=== PATIENT | female | born 1955 | race African-American/Black ===

== ENCOUNTER 2018-03-15 22:08 | Inpatient (IN) | payer MEDICARE ==
[~2018-03-15] VITALS: Ht 167.6 cm; Wt 161.0 kg
[2018-03-15] MEDS ORDERED: dilTIAZem HCl 25mg/5ml Inj IVP ONE (23:15)
[2018-03-15] MEDS ORDERED: dilTIAZem HCl 125mg/25ml Inj IVPB ONE (23:25)
[2018-03-15 23:37] LABS: BASOPHILS % (AUTO) 1.2 % (0.0-2.0); EOSINOPHILS % (AUTO) 0.4 % (0.0-3.0); HEMATOCRIT 43.7 % (37.0-47.0); HEMOGLOBIN 13.7 G/DL (12.0-16.0); LYMPHOCYTES % (AUTO) 23.6 % (20.0-45.0); MEAN CORPUSCULAR VOLUME 87 FL (80-99); MONOCYTES % (AUTO) 6.1 % (1.0-10.0); NEUTROPHILS % (AUTO) 68.7 % (45.0-75.0); PLATELET COUNT 198 K/UL (150-450); RED BLOOD COUNT 5.04 M/UL (4.20-5.40); RED CELL DISTRIBUTION WIDTH 14.4 % (11.6-14.8); WHITE BLOOD COUNT 8.8 K/UL (4.8-10.8)
[2018-03-15] MEDS ORDERED: Insulin Human Regular 100units/ml 3ml IV ONE (23:45)
[2018-03-15 23:58] LABS: ALANINE AMINOTRANSFERASE 22 U/L (12-78); ALBUMIN 2.5 G/DL (3.4-5.0); ALBUMIN/GLOBULIN RATIO 0.7 (1.0-2.7); ALKALINE PHOSPHATASE 126 U/L (46-116); ANION GAP 7 mmol/L (5-15); ASPARTATE AMINO TRANSFERASE 13 U/L (15-37); BILIRUBIN,TOTAL 0.7 MG/DL (0.2-1.0); BLOOD UREA NITROGEN 43 mg/dL (7-18); CALCIUM 8.3 MG/DL (8.5-10.1); CARBON DIOXIDE 26 MMOL/L (21-32); CHLORIDE 93 MMOL/L (98-107); CKMB 3.3 NG/ML (0.0-3.6); CREATINE KINASE 84 U/L (26-308); CREATININE 2.2 MG/DL (0.55-1.30); POTASSIUM 4.2 MMOL/L (3.5-5.1); SODIUM 126 MMOL/L (136-145)
[2018-03-16] VITALS (24 sets, daily range): BP systolic 83–136; BP diastolic 55–95
[2018-03-16 00:10] LABS: BILIRUBIN, URINE NEGATIVE (NEGATIVE); COLOR,URINE PALE YELLOW; GLUCOSE, URINE (UA) 4+ (NEGATIVE); KETONES,URINE NEGATIVE (NEGATIVE); LEUKOCYTE ESTERASE ,URINE NEGATIVE (NEGATIVE); NITRITE,URINE NEGATIVE (NEGATIVE); PH,URINE 5 (4.5-8.0); PROTEIN,URINE 3+ (NEGATIVE); UROBILINOGEN,URINE NORMAL MG/DL (0.0-1.0)
[2018-03-16 00:15] LABS: APPEARANCE,URINE SLIGHTLY CLOUDY
[2018-03-16] MEDS ORDERED: Metoprolol Succinate XL 50mg tab ORAL ONE (00:15)
--- NOTE | 2018-03-16 00:57 | Emergency Room Report ---
History of Present Illness General Chief Complaint: General Complaint Source: Patient Present Illness HPI Patient presents with complaints of abdominal swelling patient reports that she has not seen a physician in over 10 years Reports that 10 years ago she was seen by a physician told that she would live until 63 and the patient has become depressed since then gained significant weight At this time denies any chest pain however did have some palpitations intermittently denies any vomiting Patient complains of edema diffusely Patient also has history of diabetes and reports that she has not been taking any medication Allergies: Coded Allergies: No Known Allergies (Unverified , 03/15/18) Patient History Past Medical History: see triage record Pertinent Family History: none Reviewed Nursing Documentation: PMH: Agreed; PSxH: Agreed Nursing Documentation-PMH Hx Cardiac Problems: Yes Hx Hypertension: Yes Hx Diabetes: Yes Review of Systems All Other Systems: negative except mentioned in HPI Physical Exam Vital Signs Date Time Temp Pulse Resp B/P (MAP) Pulse Ox O2 Delivery O2 Flow Rate FiO2 03/15/18 22:58 98.0 145 22 140/70 94 Room Air 98.1 Sp02 EP Interpretation: reviewed, normal General Appearance: mild distress - Appears short of breath Head: normocephalic, atraumatic Eyes: bilateral eye PERRL, bilateral eye EOMI ENT: normal pharynx, no angioedema Neck: supple Respiratory: no retraction, no accessory muscle use, crackles - Bilaterally Cardiovascular #1: tachycardia, irregularly irregular Gastrointestinal: non tender, other - Patient has edema in lower abdomen, firmness on palpation, there is blister areas of lower abdomen Genitourinary: no CVA tenderness Musculoskeletal: swelling - Diffusely including pitting edema bilaterally Neurologic: alert, oriented x3, responsive Skin: other - Several areas of what appeared to be likely blister tear lower legs abdomen Lymphatic: no adenopathy Procedures Critical Care Time Critical Care Time 50 for multiple re-evaluations, initial critical presentation new Onset atrial fibrillation with concern for cardiac disease possible not including any procedural time Medical Decision Making Diagnostic Impression: Primary Impression: Atrial fibrillation with RVR Additional Impression: Hyperglycemia ER Course Patient is a fairly complex patient with multiple differential to consideration including but not limited to cardiac cardiopulmonary and vascular emergencies After initial attempts of heart rate control patient did require to be put on a drip patient also provided with diuretics Chest x-ray shows pulmonary congestion clinically consistent as well Patient's glucose is being addressed Unfortunately were not able to provide significant hydration given the CHF and fluid overload Patient is critical has had very inconsistent medical workup and presents with significant hyperglycemia and cardiac disease patient admitted to ICU for further care in critical condition Labs Test 03/15/18 23:00 03/15/18 23:50 White Blood Count 8.8 K/UL (4.8-10.8) Red Blood Count 5.04 M/UL (4.20-5.40) Hemoglobin 13.7 G/DL (12.0-16.0) Hematocrit 43.7 % (37.0-47.0) Mean Corpuscular Volume 87 FL (80-99) Mean Corpuscular Hemoglobin 27.2 PG (27.0-31.0) Mean Corpuscular Hemoglobin Concent 31.4 G/DL (32.0-36.0) Red Cell Distribution Width 14.4 % (11.6-14.8) Platelet Count 198 K/UL (150-450) Mean Platelet Volume 7.1 FL (6.5-10.1) Neutrophils (%) (Auto) 68.7 % (45.0-75.0) Lymphocytes (%) (Auto) 23.6 % (20.0-45.0) Monocytes (%) (Auto) 6.1 % (1.0-10.0) Eosinophils (%) (Auto) 0.4 % (0.0-3.0) Basophils (%) (Auto) 1.2 % (0.0-2.0) Sodium Level 126 MMOL/L (136-145) Potassium Level 4.2 MMOL/L (3.5-5.1) Chloride Level 93 MMOL/L (98-107) Carbon Dioxide Level 26 MMOL/L (21-32) Anion Gap 7 mmol/L (5-15) Blood Urea Nitrogen 43 mg/dL (7-18) Creatinine 2.2 MG/DL (0.55-1.30) Estimat Glomerular Filtration Rate 27.4 mL/min (>60) Glucose Level 678 MG/DL (74-106) Lactic Acid Level 2.80 mmol/L (0.4-2.0) Calcium Level 8.3 MG/DL (8.5-10.1) Total Bilirubin 0.7 MG/DL (0.2-1.0) Aspartate Amino Transf (AST/SGOT) 13 U/L (15-37) Alanine Aminotransferase (ALT/SGPT) 22 U/L (12-78) Alkaline Phosphatase 126 U/L (46-116) Total Creatine Kinase 84 U/L (26-308) Creatine Kinase MB 3.3 NG/ML (0.0-3.6) Creatine Kinase MB Relative Index 3.9 Troponin I 0.028 ng/mL (0.000-0.056) Pro-B-Type Natriuretic Peptide 3505 pg/mL (0-125) Total Protein 6.2 G/DL (6.4-8.2) Albumin 2.5 G/DL (3.4-5.0) Globulin 3.7 g/dL Albumin/Globulin Ratio 0.7 (1.0-2.7) Lipase 202 U/L (73-393) Urine Color Pale yellow Urine Appearance Slightly cloudy Urine pH 5 (4.5-8.0) Urine Specific [place] 1.015 (1.005-1.035) Urine Protein 3+ (NEGATIVE) Urine Glucose (UA) 4+ (NEGATIVE) Urine Ketones Negative (NEGATIVE) Urine Occult Blood Negative (NEGATIVE) Urine Nitrite Negative (NEGATIVE) Urine Bilirubin Negative (NEGATIVE) Urine Urobilinogen Normal MG/DL (0.0-1.0) Urine Leukocyte Esterase Negative (NEGATIVE) Urine RBC 0-2 /HPF (0 - 2) Urine WBC 0-2 /HPF (0 - 2) Urine Squamous Epithelial Cells None /LPF (NONE/OCC) Urine Bacteria Many /HPF (NONE) EKG Diagnostic Results Rate: tachycardiac Rhythm: other - Irregularly irregular ST Segments: other - Nonspecific ST and T-wave changes Rhythm Strip Diag. Results EP Interpretation: yes Rate: 120 Rhythm: no PVC's, no ectopy, other - afib Chest X-Ray Diagnostic Results Chest X-Ray Diagnostic Results : Chest X-Ray Ordered: Yes # of Views/Limited/Complete: 1 View Indication: Shortness of Breath EP Interpretation: Yes Interpretation: no pneumothorax, other - Cardiomegaly, pulmonary congestion Impression: Other - Acute CHF Electronically Signed by: Everett Hoffman DO Last Vital Signs Date Time Temp Pulse Resp B/P (MAP) Pulse Ox O2 Delivery O2 Flow Rate FiO2 03/16/18 00:37 133 136/60 03/15/18 22:58 98.0 22 94 Room Air 98.1 Status: improved Disposition: ADMITTED INPATIENT Condition: Critical Referrals: NOT CHOSEN IPA/MD,REFERRING (PCP) Everett Hoffman DO Mar 16, 2018 00:57
[2018-03-16] MEDS ORDERED: XANAX1 MG ORAL (01:18)
[2018-03-16] MEDS ORDERED: Enoxaparin 60mg Inj SUBQ ONE (04:30)
[2018-03-16] MEDS ORDERED: Enoxaparin 150mg Inj SUBQ ONE (04:30)
[2018-03-16] MEDS ORDERED: Enoxaparin 100mg Inj SUBQ ONE (04:30)
[2018-03-16 08:38] LABS: EOSINOPHILS % (AUTO) 0.6 % (0.0-3.0); HEMATOCRIT 44.8 % (37.0-47.0); HEMOGLOBIN 13.7 G/DL (12.0-16.0); LYMPHOCYTES % (AUTO) 27.5 % (20.0-45.0); MEAN CORPUSCULAR VOLUME 86 FL (80-99); MONOCYTES % (AUTO) 7.4 % (1.0-10.0); NEUTROPHILS % (AUTO) 63.5 % (45.0-75.0); PLATELET COUNT 221 K/UL (150-450); RED BLOOD COUNT 5.24 M/UL (4.20-5.40); RED CELL DISTRIBUTION WIDTH 14.6 % (11.6-14.8); WHITE BLOOD COUNT 10.1 K/UL (4.8-10.8)
[2018-03-16 08:44] LABS: ALANINE AMINOTRANSFERASE 22 U/L (12-78); ALBUMIN 2.4 G/DL (3.4-5.0); ALBUMIN/GLOBULIN RATIO 0.7 (1.0-2.7); ALKALINE PHOSPHATASE 121 U/L (46-116); ANION GAP 9 mmol/L (5-15); ASPARTATE AMINO TRANSFERASE 24 U/L (15-37); BILIRUBIN,TOTAL 0.6 MG/DL (0.2-1.0); BLOOD UREA NITROGEN 44 mg/dL (7-18); CALCIUM 8.2 MG/DL (8.5-10.1); CARBON DIOXIDE 24 MMOL/L (21-32); CHLORIDE 95 MMOL/L (98-107); CREATININE 2.1 MG/DL (0.55-1.30); POTASSIUM 4.2 MMOL/L (3.5-5.1); SODIUM 128 MMOL/L (136-145)
--- NOTE | 2018-03-16 09:59 | Diagnostic Imaging Report ---
Indication: Chest pain Technique: One view of the chest Comparison: 08/28/2005 Findings: Body habitus limits evaluation. The heart is enlarged. No definite infiltrates, effusions, or congestion. No significant interim change Impression: Cardiomegaly. No definite acute process
[2018-03-16] MEDS ORDERED: ALPRAZolam 0.25mg tab ORAL PRN (10:30)
[2018-03-16] MEDS ORDERED: NovoLOG Insulin Flexpen SUBQ SCH ×2 (11:30→18:00)
[2018-03-16] MEDS: Levemir Flexpen SUBQ SCH (11:41)
[2018-03-16] MEDS: Aspirin Baby 81mg ORAL SCH (11:43)
[2018-03-16 13:17] LABS: CHOLESTEROL 126 MG/DL (< 200); HDL CHOLESTEROL 42 MG/DL (40-60); TRIGLYCERIDES 110 MG/DL (30-150)
--- NOTE | 2018-03-16 14:20 | Diagnostic Imaging Report ---
Indication: Abdominal pain Technique: Guzman-scale and duplex images of the upper abdomen were obtained Comparison: Findings: Exam is somewhat limited due to patient body habitus. Gallbladder demonstrates gallstones. No gallbladder wall thickening nor pericholecystic fluid Sonographic Giang's sign is negative. Common bile duct measures 5 mm in diameter. No intrahepatic biliary ductal dilatation. Liver demonstrates normal echogenicity, no focal abnormality. Portal vein and hepatic veins are patent. Pancreas is obscured by bowel gas. Spleen is unremarkable. Left kidney measures 11.8 cm in length. Right kidney measures 13 cm length. Both kidneys demonstrate normal echogenicity. There is no hydronephrosis. Right kidney demonstrates multiple cysts . Abdominal aorta is partially obscured by bowel gas, visualized portions are non-aneurysmal . Impression: Cholelithiasis. Negative for dilated ducts Somewhat limited exam, as described. Note suboptimal visualization of the pancreas and portions of the abdominal aorta Incidental finding right renal cysts
--- NOTE | 2018-03-16 17:45 | History and Physical Report ---
DATE OF ADMISSION: 03/15/2018 REASON FOR ADMISSION: Rapid atrial fibrillation. HISTORY OF PRESENT ILLNESS: This is a 62-year-old female, who has had poor M.D. follow up. The patient has not seen a physician in the past 10 years. The patient is morbidly obese. The patient was noted to be severely depressed and has gained significant amount of weight. She is ambulatory. She has noted she does have history of atrial fibrillation, but is not being treated. She does have evidence of elevated blood sugar, but has not been treated. The patient is here with her daughter. She was admitted to intensive care unit and on a Cardizem drip. The patient does admit to poor follow-up care and at present, is agreeable to all modalities. The patient was seen and evaluated and noted to have multiple medical issues including significantly elevated blood sugars. The care was discussed and reviewed. The patient denies any chest pain. Denies any calf pain. The patient's ambulatory status is not fully clarified at this time. The patient denies any asthma or chronic obstructive pulmonary disease. She does have evidence of cardiomegaly on x-ray. PAST MEDICAL HISTORY: Notable for atrial fibrillation, depression, and anxiety. MEDICATIONS: Reviewed. ALLERGIES: Reviewed. SOCIAL HISTORY: Nonsmoker and nondrinker. The patient is disabled. She lives with her daughter. REVIEW OF SYSTEMS: All 10 points reviewed and otherwise negative. The patient does admit to abdominal pain, increasing abdominal girth, lower extremity edema, shortness of breath, and rapid heart rate. PHYSICAL EXAMINATION: GENERAL: A well-developed female, obese, and alert. VITAL SIGNS: Blood pressure 105/51, pulse 80, respirations 24, temperature 97.3, and sats 98%. HEENT: Negative. Extraocular movements are grossly intact. Oropharynx is moist. NECK: Supple. LUNGS: Fairly clear. No rhonchi or wheezes. CARDIAC: Irregularly irregular. Slightly tachycardic without murmurs. ABDOMEN: Soft and obese. Difficult to fully palpate. EXTREMITIES: With noted edema. SKIN: Noted. The patient does have wounds on the foot and in the abdominal cavity area. NEUROLOGICAL: Diffusely weak, but alert. LABORATORY DATA: Reviewed. Sodium 128, BUN 44, and creatinine 2.1. Albumin 2.4. TSH 3.77. Lactic acid 2.8. White cell count 10 and platelets of 221,000. INR is normal. Urinalysis, fairly negative. IMPRESSION: 1. Rapid atrial fibrillation. 2. Abnormal thyroid stimulating hormone. 3. Possible chronic renal failure. 4. Electrolyte imbalance. 5. Questionable ascites. 6. Diabetes. RECOMMENDATIONS: 1. Supportive care. 2. Sliding scale insulin. 3. Cardizem drip. 4. Cardiology evaluation. 5. Monitor blood sugars and we will start insulin. 6. Followup renal function. 7. Obtain echocardiogram. 8. Obtain venous ultrasound. 9. Obtain abdominal ultrasound. 10. Monitor clinically and obtain renal evaluation. 11. Transition to p.o. medication when stable and reassess and recommend further changes. The patient will need close followup care after discharge and the patient and family are aware. Tra Massey M.D. DR: HOWARD JOB#: [id number] CC:
[2018-03-16] MEDS: Metoprolol Tartrate 50mg tab ORAL SCH (21:02)
[2018-03-16] MEDS: Heparin 5000 units/ml inj SUBQ SCH (21:05)
[2018-03-16] MEDS: NovoLOG Insulin Flexpen SUBQ SCH (21:10)
[2018-03-17] VITALS (20 sets, daily range): BP systolic 81–130; BP diastolic 47–93
--- NOTE | 2018-03-17 02:15 | Consultation ---
DATE OF CONSULTATION: 03/16/2018 CARDIOLOGY CONSULTATION CONSULTING PHYSICIAN: Martínez Barragan M.D. REQUESTING PHYSICIAN: Tra Massey M.D. REASON FOR CONSULTATION: Atrial fibrillation with rapid ventricular response. HISTORY OF PRESENT [id number]: This is a 62-year-old female. She has not had much medical care in the past. She has not seen a physician for over 10 years according to family members. She came to the emergency room because of shortness of breath. She was also noted to have very high blood sugar levels. She denies chest pain. She denies calf pain. She denies any prior history of lung disease. She has been obese. She has gained significant weight. She has had difficulty with ambulation as a result she has had swelling of her legs. In the emergency room, rapid atrial fibrillation was noted. The patient was admitted to the intensive care unit, also due to low blood pressure readings. Cardiology consultation has been requested. PAST MEDICAL HISTORY: Anxiety, depression and paroxysmal atrial fibrillation. ALLERGIES: None. MEDICATIONS: Prior to admission, none. FAMILY HISTORY: Noncontributory. SOCIAL HISTORY: She denies smoking, alcohol or substance abuse. She lives with her daughter. REVIEW OF SYSTEMS: No fevers or chills. She has had increasing abdominal girth and pain. She has had leg swelling. There is no history of seizure or stroke. There is no known history of diabetes or thyroid disorder. There is no known history of asthma. There is no history of blood clotting. She has not had any change in bowel habits, although is constipated at times. She has not had any signs of bleeding from her rectum. PHYSICAL EXAMINATION: VITAL SIGNS: Blood pressure ranging 95/50, heart rate 110, respiratory rate 24, and temperature afebrile. HEENT: Normocephalic and atraumatic. Conjunctivae are pink. Oropharynx is clear. NECK: Supple and obese. LUNGS: Diminished breath sounds. No wheezing or rales. CARDIAC: Irregularly irregular. Normal S1 and S2. No murmur. ABDOMEN: Obese. Soft. There is moderate ascites extremities with 2-3+ edema. There are some wounds on the foot pictured in the chart and on the lower abdominal cavity area. LABORATORY AND DIAGNOSTIC DATA: White count 8.8 and hemoglobin 13.7. Sodium 128, potassium , bicarbonate 24, BUN 44, creatinine and glucose 461. Natriuretic peptide 3390. Albumin 2.4. TSH 3.7. Lactic acid 2.8 and repeated 3.5, and later this afternoon 1.8. EKG, atrial fibrillation with rapid ventricular response and poor R-wave progression. IMPRESSION: 1. Rapid atrial fibrillation. 2. Lactic acidosis. 3. Severe protein-calorie malnutrition. 4. Acute renal failure with possible history of chronic kidney disease. 5. Diabetes mellitus, likely untreated now with glucose uncontrolled. 6. Hyponatremia. 7. Hypochloremia. 8. Possible intravascular volume depletion. PLAN: 1. Cardiac monitoring for rate control. 2. Cardioembolic prophylaxis with full anticoagulation. 3. Diuresis as able based on blood pressure parameters. 4. Protein supplement. 5. Echocardiogram. 6. Venous duplex study. 7. Renal ultrasound. 8. Trend natriuretic peptide assay. 9. Check troponin levels. Martínez Barragan M.D. DR: EDDIE JOB#: [id number] CC:
[2018-03-17] MEDS: NovoLOG Insulin Flexpen SUBQ SCH ×4 (06:18→22:01)
[2018-03-17] MEDS: Heparin 5000 units/ml inj SUBQ SCH ×2 (08:28→22:00)
[2018-03-17] MEDS: Aspirin Baby 81mg ORAL SCH (08:28)
[2018-03-17] MEDS: Metoprolol Tartrate 50mg tab ORAL SCH ×3 (08:28→21:00)
[2018-03-17] MEDS: Levemir Flexpen SUBQ SCH (08:29)
[2018-03-17] MEDS ORDERED: Aspirin Baby 81mg NG SCH (09:00)
[2018-03-17 09:19] LABS: HEMATOCRIT 43.1 % (37.0-47.0); HEMOGLOBIN 13.5 G/DL (12.0-16.0); MEAN CORPUSCULAR VOLUME 84 FL (80-99); MONOCYTES % (AUTO) 5.1 % (1.0-10.0); NEUTROPHILS % (AUTO) 59.8 % (45.0-75.0); PLATELET COUNT 197 K/UL (150-450); RED BLOOD COUNT 5.14 M/UL (4.20-5.40); RED CELL DISTRIBUTION WIDTH 14.3 % (11.6-14.8); WHITE BLOOD COUNT 9.8 K/UL (4.8-10.8)
[2018-03-17 10:11] LABS: ALANINE AMINOTRANSFERASE 23 U/L (12-78); ALBUMIN 2.1 G/DL (3.4-5.0); ALBUMIN/GLOBULIN RATIO 0.6 (1.0-2.7); ALKALINE PHOSPHATASE 130 U/L (46-116); ANION GAP 9 mmol/L (5-15); ASPARTATE AMINO TRANSFERASE 18 U/L (15-37); BILIRUBIN,TOTAL 0.7 MG/DL (0.2-1.0); BLOOD UREA NITROGEN 50 mg/dL (7-18); CALCIUM 8.4 MG/DL (8.5-10.1); CARBON DIOXIDE 21 MMOL/L (21-32); CHLORIDE 98 MMOL/L (98-107); CREATININE 2.2 MG/DL (0.55-1.30); POTASSIUM 3.8 MMOL/L (3.5-5.1); SODIUM 128 MMOL/L (136-145)
[2018-03-17] MEDS: Digoxin 0.5mg/2ml Inj IVP SCH ×4 (14:00→21:57)
--- NOTE | 2018-03-17 17:01 | General Progress Note ---
Assessment/Plan Assessment/Plan IMPRESSION: 1. Rapid atrial fibrillation. 2. Abnormal thyroid stimulating hormone. 3. Possible chronic renal failure. 4. Electrolyte imbalance. 5. Questionable ascites. 6. Diabetes. RECOMMENDATIONS: 1. Supportive care reviewed 2. Sliding scale insulin- need better control 3. Cardizem drip off 4. Cardiology evaluation appreciated 5. Monitor blood sugars and we will start insulin and adjust 6. Followup renal function. 7. await echocardiogram. 8. negative venous ultrasound. 9. negative abdominal ultrasound. 10. Monitor clinically and obtain renal evaluation. 11. move to tele 12. needs PT medications/laboratory data/nursing notes/ICU care reviewed in detail note reviewed and edited care discussed with RN and RT ICU time spent 40 minutes Subjective Allergies: Coded Allergies: No Known Allergies (Unverified , 03/15/18) Subjective care reviewed with patient d/w patient in detail off pressors Objective Last 24 Hour Vital Signs Date Time Temp Pulse Resp B/P (MAP) Pulse Ox O2 Delivery O2 Flow Rate FiO2 03/17/18 15:00 106 14 127/70 (89) 98 03/17/18 14:00 81 14 81/47 (58) 99 03/17/18 14:00 121 03/17/18 13:00 79 20 89/58 (68) 99 03/17/18 12:00 Room Air 03/17/18 12:00 98.7 124 21 112/61 (78) 97 98.7 03/17/18 12:00 122 03/17/18 11:00 120 18 123/88 (100) 99 03/17/18 10:00 119 11 99/71 (80) 99 03/17/18 09:00 120 123/88 03/17/18 09:00 115 11 96/61 (73) 99 03/17/18 08:00 98.1 106 14 98/68 (78) 100 98.1 03/17/18 08:00 Room Air 03/17/18 08:00 115 03/17/18 07:00 99 22 109/70 (83) 100 03/17/18 06:00 90 24 95/64 (74) 100 03/17/18 05:00 94 24 100/62 (75) 100 03/17/18 04:00 Room Air 03/17/18 04:00 96 03/17/18 04:00 97.8 99 17 101/59 (73) 99 97.8 03/17/18 03:00 90 21 95/60 (72) 98 03/17/18 02:00 97 24 105/75 (85) 100 03/17/18 01:00 89 16 102/62 (75) 100 03/17/18 00:30 99 25 91/58 (69) 99 03/17/18 00:00 97.6 99 25 85/58 (67) 99 97.6 03/17/18 00:00 91 03/17/18 00:00 Room Air 03/16/18 23:00 99 25 99/69 (79) 99 03/16/18 22:00 98 24 83/67 (72) 98 03/16/18 21:02 99 110/70 03/16/18 21:00 102 24 88/60 (69) 98 03/16/18 20:00 98.5 102 26 110/70 (83) 98 98.5 03/16/18 20:00 108 03/16/18 20:00 Room Air 03/16/18 19:00 99 23 98/65 (76) 97 03/16/18 18:03 98.1 03/16/18 18:00 84 23 102/70 (81) 98 03/16/18 17:08 98.1 03/16/18 17:00 96 24 107/73 (84) 97 Intake and Output 03/16/18 03/17/18 19:00 07:00 Intake Total 160 ml 280 ml Output Total 1495 ml 910 ml Balance -1335 ml -630 ml Intake Oral 145 ml 30 ml IV Total 15 ml 250 ml Output Urine Total 1495 ml 910 ml # Voids 100 # Bowel Movements 2 Laboratory Tests 03/17/18 09:00: White Blood Count 9.8, Red Blood Count 5.14, Hemoglobin 13.5, Hematocrit 43.1, Mean Corpuscular Volume 84, Mean Corpuscular Hemoglobin 26.3L, Mean Corpuscular Hemoglobin Concent 31.3L, Red Cell Distribution Width 14.3, Platelet Count 197, Mean Platelet Volume 7.4, Neutrophils (%) (Auto) 59.8, Lymphocytes (%) (Auto) 33.0, Monocytes (%) (Auto) 5.1, Eosinophils (%) (Auto) 1.0, Basophils (%) (Auto ) 1.0, Sodium Level 128L, Potassium Level 3.8, Chloride Level 98, Carbon Dioxide Level 21, Anion Gap 9, Blood Urea Nitrogen 50H, Creatinine 2.2H, Estimat Glomerular Filtration Rate 27.3, Glucose Level 195#H, Hemoglobin A1c 13.1H, Calcium Level 8.4L, Magnesium Level 2.1, Total Bilirubin 0.7, Aspartate Amino Transf (AST/SGOT) 18, Alanine Aminotransferase (ALT/SGPT) 23, Alkaline Phosphatase 130H, Troponin I 0.014, Total Protein 5.5L, Albumin 2.1L, Globulin 3.4, Albumin/Globulin Ratio 0.6L Height (Feet): 5 Height (Inches): 6.00 Weight (Pounds): 360 Objective WDWN NAD obese clear breath sounds bilaterally without rhonchi or wheeze [id number] without MRG NABS nontender no HSM no CC moderate edema nonfocal Tra Massey MD Mar 17, 2018 17:01
[2018-03-17] MEDS ORDERED: ALPRAZolam 0.25mg tab ORAL PRN (18:35)
[2018-03-18] VITALS: BP 119/72
--- NOTE | 2018-03-18 00:45 | Progress Note ---
DATE: 03/17/2018 CARDIOLOGY PROGRESS NOTE SUBJECTIVE: The patient's blood pressure was low last night, but has stabilized today. Her heart rate remains elevated. Monitored rhythm, atrial fibrillation. The patient is unaware of any prior history of irregular heartbeat. She has also never treated her diabetes and has an A1c level above 13. OBJECTIVE: VITAL SIGNS: Blood pressure 81/47 to 127/70, heart rate 120, respiratory rate 14, and afebrile. LUNGS: Diminished breath sounds. Irregularly irregular rhythm. ABDOMEN: Obese plus or minus ascites. EXTREMITIES: A 2+ dependent edema. LABORATORY AND DIAGNOSTIC DATA: White count 9.8, hemoglobin 13.5, BUN 50, and creatinine 2.2. Sodium 128, potassium 3.8, glucose 195, albumin 2.1. Troponin negative. Echocardiogram revealed degenerative valve disease with mild aortic stenosis and normal ejection fraction. The mitral valve area needs to be recalculated. IMPRESSION: 1. Atrial fibrillation with rapid ventricular response. 2. Chronic diastolic congestive heart failure. 3. Hypotension. 4. Acute on chronic renal failure. 5. Diabetes mellitus uncontrolled and untreated. 6. Severe protein-calorie malnutrition. 7. Possible ascites. PLAN: 1. Digitalize and titrate beta-yusuf. 2. Hold diuresis. 3. Diabetic control. 4. Follow up final echo report. Mario Mcdaniels JOB#: [id number] CC:
[2018-03-18 04:00] VITALS: BP 124/68
[2018-03-18] MEDS: NovoLOG Insulin Flexpen SUBQ SCH ×4 (06:27→21:26)
[2018-03-18 08:00] VITALS: BP 121/74
[2018-03-18 08:22] LABS: ANION GAP 11 mmol/L (5-15); BLOOD UREA NITROGEN 47 mg/dL (7-18); CALCIUM 8.5 MG/DL (8.5-10.1); CARBON DIOXIDE 20 MMOL/L (21-32); CHLORIDE 101 MMOL/L (98-107); CREATININE 1.8 MG/DL (0.55-1.30); SODIUM 132 MMOL/L (136-145)
[2018-03-18] MEDS: Heparin 5000 units/ml inj SUBQ SCH ×2 (08:46→21:25)
[2018-03-18] MEDS: Metoprolol Tartrate 50mg tab ORAL SCH ×2 (08:47→21:24)
[2018-03-18] MEDS ORDERED: Levemir Flexpen SUBQ SCH (09:00)
[2018-03-18] MEDS ORDERED: Aspirin Baby 81mg ORAL SCH (09:00)
--- NOTE | 2018-03-18 10:51 | Pulmonology Progress Note ---
Assessment/Plan Assessment/Plan Pulmonary Progress Note Assessment/Plan IMPRESSION: 1. Rapid atrial fibrillation. 2. Abnormal thyroid stimulating hormone. 3. Possible chronic renal failure. 4. Electrolyte imbalance. 5. Questionable ascites. 6. Diabetes. RECOMMENDATIONS: 1. Supportive care reviewed 2. Sliding scale insulin- need better control 3. Cardizem drip off 4. Cardiology evaluation appreciated 5. Monitor blood sugars and we will start insulin and adjust 6. Followup renal function. 7. await echocardiogram. 8. negative venous ultrasound. 9. negative abdominal ultrasound. 10. Monitor clinically and obtain renal evaluation. 11. move to tele 12. needs PT medications/laboratory data/nursing notes/ICU care reviewed in detail note reviewed and edited care discussed with RN and RT ICU time spent 40 minutes Subjective Allergies: Coded Allergies: No Known Allergies (Unverified , 03/15/18) Subjective care reviewed with patient d/w patient in detail off pressors Objective Last 24 Hour Vital Signs Date Time Temp Pulse Resp B/P (MAP) Pulse Ox O2 Delivery O2 Flow Rate FiO2 03/17/18 15:00 106 14 127/70 (89) 98 03/17/18 14:00 81 14 81/47 (58) 99 03/17/18 14:00 121 03/17/18 13:00 79 20 89/58 (68) 99 03/17/18 12:00 Room Air 03/17/18 12:00 98.7 124 21 112/61 (78) 97 98.7 03/17/18 12:00 122 03/17/18 11:00 120 18 123/88 (100) 99 03/17/18 10:00 119 11 99/71 (80) 99 03/17/18 09:00 120 123/88 03/17/18 09:00 115 11 96/61 (73) 99 03/17/18 08:00 98.1 106 14 98/68 (78) 100 98.1 03/17/18 08:00 Room Air 03/17/18 08:00 115 03/17/18 07:00 99 22 109/70 (83) 100 03/17/18 06:00 90 24 95/64 (74) 100 03/17/18 05:00 94 24 100/62 (75) 100 03/17/18 04:00 Room Air 03/17/18 04:00 96 03/17/18 04:00 97.8 99 17 101/59 (73) 99 97.8 03/17/18 03:00 90 21 95/60 (72) 98 03/17/18 02:00 97 24 105/75 (85) 100 03/17/18 01:00 89 16 102/62 (75) 100 03/17/18 00:30 99 25 91/58 (69) 99 03/17/18 00:00 97.6 99 25 85/58 (67) 99 97.6 03/17/18 00:00 91 03/17/18 00:00 Room Air 03/16/18 23:00 99 25 99/69 (79) 99 03/16/18 22:00 98 24 83/67 (72) 98 03/16/18 21:02 99 110/70 03/16/18 21:00 102 24 88/60 (69) 98 03/16/18 20:00 98.5 102 26 110/70 (83) 98 98.5 03/16/18 20:00 108 03/16/18 20:00 Room Air 03/16/18 19:00 99 23 98/65 (76) 97 03/16/18 18:03 98.1 03/16/18 18:00 84 23 102/70 (81) 98 03/16/18 17:08 98.1 03/16/18 17:00 96 24 107/73 (84) 97 Intake and Output 03/16/18 03/17/18 19:00 07:00 Intake Total 160 ml 280 ml Output Total 1495 ml 910 ml Balance -1335 ml -630 ml Intake Oral 145 ml 30 ml IV Total 15 ml 250 ml Output Urine Total 1495 ml 910 ml # Voids 100 # Bowel Movements 2 Laboratory Tests 03/17/18 09:00: White Blood Count 9.8, Red Blood Count 5.14, Hemoglobin 13.5, Hematocrit 43.1, Mean Corpuscular Volume 84, Mean Corpuscular Hemoglobin 26.3L, Mean Corpuscular Hemoglobin Concent 31.3L, Red Cell Distribution Width 14.3, Platelet Count 197, Mean Platelet Volume 7.4, Neutrophils (%) (Auto) 59.8, Lymphocytes (%) (Auto) 33.0, Monocytes (%) (Auto) 5.1, Eosinophils (%) (Auto) 1.0, Basophils (%) (Auto ) 1.0, Sodium Level 128L, Potassium Level 3.8, Chloride Level 98, Carbon Dioxide Level 21, Anion Gap 9, Blood Urea Nitrogen 50H, Creatinine 2.2H, Estimat Glomerular Filtration Rate 27.3, Glucose Level 195#H, Hemoglobin A1c 13.1H, Calcium Level 8.4L, Magnesium Level 2.1, Total Bilirubin 0.7, Aspartate Amino Transf (AST/SGOT) 18, Alanine Aminotransferase (ALT/SGPT) 23, Alkaline Phosphatase 130H, Troponin I 0.014, Total Protein 5.5L, Albumin 2.1L, Globulin 3.4, Albumin/Globulin Ratio 0.6L Height (Feet): 5 Height (Inches): 6.00 Weight (Pounds): 360 Objective WDWN NAD obese clear breath sounds bilaterally without rhonchi or wheeze [id number] without MRG NABS nontender no HSM no CC moderate edema nonfocal CXR: No acute findings Subjective ROS Limited/Unobtainable: No Allergies: Coded Allergies: No Known Allergies (Unverified , 03/15/18) Objective Last 24 Hour Vital Signs Date Time Temp Pulse Resp B/P (MAP) Pulse Ox O2 Delivery O2 Flow Rate FiO2 03/18/18 10:07 97.2 03/18/18 08:47 96 121/74 03/18/18 08:00 97.2 96 20 121/74 (90) 96 97.2 03/18/18 08:00 Room Air 03/18/18 07:51 97 03/18/18 04:00 97.4 94 20 124/68 (86) 95 97.4 03/18/18 04:00 Room Air 03/18/18 03:50 94 03/18/18 00:02 86 03/18/18 00:00 97.8 91 21 119/72 (88) 96 97.8 03/18/18 00:00 Room Air 03/17/18 21:57 88 03/17/18 21:00 88 130/68 03/17/18 20:00 Room Air 03/17/18 20:00 88 20 130/68 (88) 98 03/17/18 20:00 96 03/17/18 19:02 98 03/17/18 17:00 103 15 116/93 (101) 97 03/17/18 16:00 108 03/17/18 16:00 Room Air 03/17/18 16:00 103 03/17/18 16:00 97.2 110 20 108/59 (75) 98 97.2 03/17/18 15:00 106 14 127/70 (89) 98 03/17/18 14:00 81 14 81/47 (58) 99 03/17/18 14:00 121 03/17/18 13:00 79 20 89/58 (68) 99 03/17/18 12:00 Room Air 03/17/18 12:00 98.7 124 21 112/61 (78) 97 98.7 03/17/18 12:00 122 03/17/18 11:00 120 18 123/88 (100) 99 Intake and Output 03/17/18 03/18/18 19:00 07:00 Intake Total 490 ml 240 ml Output Total 450 ml 2950 ml Balance 40 ml -2710 ml Intake Oral 490 ml 240 ml Output Urine Total 450 ml 2950 ml # Bowel Movements 3 2 Microbiology Date/Time Source Procedure Growth Status 03/15/18 23:15 Blood Blood Culture - Preliminary NO GROWTH AFTER 48 HOURS Resulted 03/15/18 23:00 Blood Blood Culture - Preliminary NO GROWTH AFTER 48 HOURS Resulted 03/15/18 23:50 Urine,Clean Catch Urine Culture - Final NO GROWTH AFTER 48 HOURS Complete 03/16/18 06:00 Rectum VRE Culture - Final NO VANCOMYCIN RESISTANT ENTEROCOCCUS ... Complete Laboratory Tests 03/18/18 07:30: Sodium Level 132L, Potassium Level 5.0, Chloride Level 101, Carbon Dioxide Level 20L, Anion Gap 11, Blood Urea Nitrogen 47H, Creatinine 1.8H, Estimat Glomerular Filtration Rate 34.3, Glucose Level 96#, Calcium Level 8.5 Current Medications Medications (Trade) Dose Ordered Sig/Yu Route PRN Reason Start Time Stop Time Status Last Admin Dose Admin Acetaminophen (Tylenol) 650 mg Q4H PRN ORAL Mild Pain/Temp > 100.5 03/18/18 14:00 04/15/18 13:59 Alprazolam (Xanax) 0.5 mg TID PRN ORAL Anxiety 03/18/18 13:00 03/23/18 18:34 Aspirin (ASA) 81 mg DAILY ORAL 03/19/18 09:00 04/15/18 11:29 Dextrose (Dextrose 50%) 25 ml STAT PRN IV Hypoglycemia 03/18/18 10:45 04/16/18 10:44 Dextrose (Dextrose 50%) 50 ml STAT PRN IV Hypoglycemia 03/18/18 10:45 04/16/18 10:44 Heparin Sodium (Porcine) (Heparin 5000 units/ml) 5,000 units EVERY 12 HOURS SUBQ 03/18/18 21:00 04/15/18 20:59 Insulin Aspart (NovoLOG) AC+HS SUBQ 03/18/18 11:30 04/15/18 11:29 Insulin Detemir (Levemir) 16 units DAILY SUBQ 03/19/18 09:00 04/15/18 11:59 Metoprolol Tartrate (Lopressor) 50 mg Q12HR ORAL 03/18/18 21:00 04/15/18 20:59 Ondansetron HCl (Zofran) 4 mg Q6H PRN IVP Nausea & Vomiting 03/18/18 10:45 04/16/18 10:44 Pantoprazole (Protonix) 40 mg BIAC ORAL 03/18/18 16:30 04/15/18 16:29 Martínez Ruby MD Mar 18, 2018 10:51
[2018-03-18 12:00] VITALS: BP 102/59
[2018-03-18 15:19] LABS: BASOPHILS % (AUTO) 1.4 % (0.0-2.0); EOSINOPHILS % (AUTO) 0.9 % (0.0-3.0); HEMATOCRIT 42.9 % (37.0-47.0); HEMOGLOBIN 13.4 G/DL (12.0-16.0); LYMPHOCYTES % (AUTO) 17.4 % (20.0-45.0); MEAN CORPUSCULAR VOLUME 86 FL (80-99); MONOCYTES % (AUTO) 5.9 % (1.0-10.0); NEUTROPHILS % (AUTO) 74.5 % (45.0-75.0); PLATELET COUNT 208 K/UL (150-450); RED BLOOD COUNT 5.01 M/UL (4.20-5.40); RED CELL DISTRIBUTION WIDTH 15.1 % (11.6-14.8); WHITE BLOOD COUNT 8.8 K/UL (4.8-10.8)
[2018-03-18 15:58] VITALS: BP 104/58
[2018-03-18] MEDS: Digoxin 0.125mg tab ORAL SCH (16:17)
[2018-03-18 20:00] VITALS: BP 115/63
[2018-03-19] VITALS: BP 138/94
[2018-03-19] MEDS: ALPRAZolam 0.25mg tab ORAL PRN ×2 (00:51→11:58)
--- NOTE | 2018-03-19 03:45 | Progress Note ---
DATE: 03/18/2018 CARDIOLOGY PROGRESS NOTE SUBJECTIVE: The patient with no chest pain. No shortness of breath. She continues to have rapid atrial fibrillation. Blood pressure parameters improving overall although range still labile. PHYSICAL EXAMINATION: VITAL SIGNS: Afebrile, blood pressure 121/57, pulse 88, and respirations 18. LUNGS: Diminished breath sounds. CARDIOVASCULAR: Irregularly irregular rhythm. ABDOMEN: Soft. EXTREMITIES: 1 to 2+ dependent edema. IMPRESSION: 1. Atrial fibrillation. 2. Chronic kidney disease. 3. Possible ascites. 4. Degenerative valve disease. 5. Type 2 diabetes, untreated. PLAN: 1. Add digoxin. 2. Insulin titration. 3. Mobilize. 4. Hold diuresis in view of tenuous blood pressure parameters. 5. We will follow. Martínez Barragan M.D. DR: CHAPO JOB#: [id number] CC:
[2018-03-19 04:00] VITALS: BP 129/77
[2018-03-19] MEDS: NovoLOG Insulin Flexpen SUBQ SCH ×4 (05:45→21:56)
[2018-03-19 07:56] LABS: BASOPHILS % (AUTO) 1.2 % (0.0-2.0); EOSINOPHILS % (AUTO) 1.6 % (0.0-3.0); HEMATOCRIT 42.2 % (37.0-47.0); HEMOGLOBIN 13.5 G/DL (12.0-16.0); LYMPHOCYTES % (AUTO) 28.5 % (20.0-45.0); MEAN CORPUSCULAR VOLUME 87 FL (80-99); NEUTROPHILS % (AUTO) 60.7 % (45.0-75.0); PLATELET COUNT 185 K/UL (150-450); RED BLOOD COUNT 4.87 M/UL (4.20-5.40); RED CELL DISTRIBUTION WIDTH 15.1 % (11.6-14.8); WHITE BLOOD COUNT 7.1 K/UL (4.8-10.8)
[2018-03-19 08:00] VITALS: BP 133/84
[2018-03-19 08:20] LABS: ALANINE AMINOTRANSFERASE 20 U/L (12-78); ALBUMIN 2.2 G/DL (3.4-5.0); ALBUMIN/GLOBULIN RATIO 0.6 (1.0-2.7); ALKALINE PHOSPHATASE 120 U/L (46-116); ANION GAP 8 mmol/L (5-15); ASPARTATE AMINO TRANSFERASE 18 U/L (15-37); BILIRUBIN,TOTAL 0.4 MG/DL (0.2-1.0); BLOOD UREA NITROGEN 43 mg/dL (7-18); CALCIUM 8.7 MG/DL (8.5-10.1); CARBON DIOXIDE 26 MMOL/L (21-32); CHLORIDE 103 MMOL/L (98-107); CREATININE 1.7 MG/DL (0.55-1.30); POTASSIUM 4.3 MMOL/L (3.5-5.1); SODIUM 136 MMOL/L (136-145)
--- NOTE | 2018-03-19 08:21 | General Progress Note ---
Assessment/Plan Problem List: (1) Hyperglycemia ICD Codes: R73.9 - Hyperglycemia, unspecified SNOMED: 37412682 (2) Atrial fibrillation with RVR ICD Codes: I48.91 - Unspecified atrial fibrillation SNOMED: 540167994929983 (3) Obesity ICD Codes: E66.9 - Obesity, unspecified SNOMED: 539472267, [id number] Status: stable, progressing Assessment/Plan rate control per cards insulin coverage dvt/stress ulcer prophylaxis Subjective Date patient seen: Mar 18, 2018 ROS Limited/Unobtainable: Yes HEENT: Reports: no symptoms Cardiovascular: Reports: palpitations Respiratory: Reports: shortness of breath Gastrointestinal/Abdominal: Reports: no symptoms Genitourinary: Reports: no symptoms Neurologic/Psychiatric: Reports: no symptoms Endocrine: Reports: no symptoms Hematologic/Lymphatic: Reports: no symptoms Allergies: Coded Allergies: No Known Allergies (Unverified , 03/15/18) All Systems: reviewed and negative except above Subjective no complaints. no cp/sob. HR controlled. no fever or chills. Objective Last 24 Hour Vital Signs Date Time Temp Pulse Resp B/P (MAP) Pulse Ox O2 Delivery O2 Flow Rate FiO2 03/19/18 04:00 97.5 87 20 129/77 (94) 96 97.5 03/19/18 04:00 101 03/19/18 00:00 97.0 86 20 138/94 (109) 97 97.0 03/19/18 00:00 92 03/18/18 21:24 114 115/63 03/18/18 21:00 Room Air 03/18/18 20:00 114 03/18/18 20:00 97.3 114 18 115/63 (80) 97 97.3 03/18/18 16:17 99 03/18/18 16:00 103 03/18/18 15:58 97.6 99 18 104/58 (73) 95 97.6 03/18/18 12:00 97.8 108 18 102/59 (73) 100 97.8 03/18/18 12:00 149 03/18/18 10:07 97.2 03/18/18 08:47 96 121/74 Intake and Output 03/18/18 03/19/18 19:00 07:00 Intake Total 225 ml 100 ml Output Total 250 ml 800 ml Balance -25 ml -700 ml Intake Oral 225 ml 100 ml Output Urine Total 250 ml 800 ml Laboratory Tests 03/18/18 14:45: White Blood Count 8.8, Red Blood Count 5.01, Hemoglobin 13.4, Hematocrit 42.9, Mean Corpuscular Volume 86, Mean Corpuscular Hemoglobin 26.7L, Mean Corpuscular Hemoglobin Concent 31.2L, Red Cell Distribution Width 15.1H, Platelet Count 208 , Mean Platelet Volume 7.0, Neutrophils (%) (Auto) 74.5, Lymphocytes (%) (Auto) 17.4L, Monocytes (%) (Auto) 5.9, Eosinophils (%) (Auto) 0.9, Basophils (%) (Auto ) 1.4 03/19/18 07:35: White Blood Count 7.1, Red Blood Count 4.87, Hemoglobin 13.5, Hematocrit 42.2, Mean Corpuscular Volume 87, Mean Corpuscular Hemoglobin 27.6, Mean Corpuscular Hemoglobin Concent 31.9L, Red Cell Distribution Width 15.1H, Platelet Count 185 , Mean Platelet Volume 7.5, Neutrophils (%) (Auto) 60.7, Lymphocytes (%) (Auto) 28.5, Monocytes (%) (Auto) 8.0, Eosinophils (%) (Auto) 1.6, Basophils (%) (Auto ) 1.2, Sodium Level [Pending], Potassium Level [Pending], Chloride Level [ Pending], Carbon Dioxide Level [Pending], Blood Urea Nitrogen [Pending], Creatinine [Pending], Estimat Glomerular Filtration Rate [Pending], Glucose Level [Pending], Calcium Level [Pending], Magnesium Level [Pending], Total Bilirubin [Pending], Aspartate Amino Transf (AST/SGOT) [Pending], Alanine Aminotransferase (ALT/SGPT) [Pending], Alkaline Phosphatase [Pending], Pro-B- Type Natriuretic Peptide [Pending], Total Protein [Pending], Albumin [Pending], Globulin [Pending], Digoxin Level [Pending] Height (Feet): 5 Height (Inches): 6.00 Weight (Pounds): 304 General Appearance: WD/WN, alert Neck: supple Cardiovascular: irregularly irregular Respiratory/Chest: chest wall non-tender, lungs clear, normal breath sounds, no respiratory distress Abdomen: normal bowel sounds, non tender, soft, no organomegaly Neurologic: alert, oriented x 3, responsive Moose Fowler MD Mar 19, 2018 08:21
--- NOTE | 2018-03-19 08:23 | General Progress Note ---
Assessment/Plan Problem List: (1) Hyperglycemia ICD Codes: R73.9 - Hyperglycemia, unspecified SNOMED: 08848241 (2) Atrial fibrillation with RVR ICD Codes: I48.91 - Unspecified atrial fibrillation SNOMED: 609524520590431 (3) Obesity ICD Codes: E66.9 - Obesity, unspecified SNOMED: 277448492, [id number] Status: stable, progressing Assessment/Plan rate control per cards insulin coverage dvt/stress ulcer prophylaxis no indication for paracentesis Subjective ROS Limited/Unobtainable: No Constitutional: Reports: weakness HEENT: Reports: no symptoms Cardiovascular: Reports: palpitations Respiratory: Reports: no symptoms Gastrointestinal/Abdominal: Reports: abdomen distended Genitourinary: Reports: no symptoms Neurologic/Psychiatric: Reports: no symptoms Endocrine: Reports: no symptoms Hematologic/Lymphatic: Reports: no symptoms Allergies: Coded Allergies: No Known Allergies (Unverified , 03/15/18) All Systems: reviewed and negative except above Subjective no complaints. no cp/sob. HR controlled. no fever or chills. had some "palpitations" last night. wants to get her stomach "drained." Objective Last 24 Hour Vital Signs Date Time Temp Pulse Resp B/P (MAP) Pulse Ox O2 Delivery O2 Flow Rate FiO2 03/19/18 04:00 97.5 87 20 129/77 (94) 96 97.5 03/19/18 04:00 101 03/19/18 00:00 97.0 86 20 138/94 (109) 97 97.0 03/19/18 00:00 92 03/18/18 21:24 114 115/63 03/18/18 21:00 Room Air 03/18/18 20:00 114 03/18/18 20:00 97.3 114 18 115/63 (80) 97 97.3 03/18/18 16:17 99 03/18/18 16:00 103 03/18/18 15:58 97.6 99 18 104/58 (73) 95 97.6 03/18/18 12:00 97.8 108 18 102/59 (73) 100 97.8 03/18/18 12:00 149 03/18/18 10:07 97.2 03/18/18 08:47 96 121/74 Intake and Output 03/18/18 03/19/18 19:00 07:00 Intake Total 225 ml 100 ml Output Total 250 ml 800 ml Balance -25 ml -700 ml Intake Oral 225 ml 100 ml Output Urine Total 250 ml 800 ml Laboratory Tests 03/18/18 14:45: White Blood Count 8.8, Red Blood Count 5.01, Hemoglobin 13.4, Hematocrit 42.9, Mean Corpuscular Volume 86, Mean Corpuscular Hemoglobin 26.7L, Mean Corpuscular Hemoglobin Concent 31.2L, Red Cell Distribution Width 15.1H, Platelet Count 208 , Mean Platelet Volume 7.0, Neutrophils (%) (Auto) 74.5, Lymphocytes (%) (Auto) 17.4L, Monocytes (%) (Auto) 5.9, Eosinophils (%) (Auto) 0.9, Basophils (%) (Auto ) 1.4 03/19/18 07:35: White Blood Count 7.1, Red Blood Count 4.87, Hemoglobin 13.5, Hematocrit 42.2, Mean Corpuscular Volume 87, Mean Corpuscular Hemoglobin 27.6, Mean Corpuscular Hemoglobin Concent 31.9L, Red Cell Distribution Width 15.1H, Platelet Count 185 , Mean Platelet Volume 7.5, Neutrophils (%) (Auto) 60.7, Lymphocytes (%) (Auto) 28.5, Monocytes (%) (Auto) 8.0, Eosinophils (%) (Auto) 1.6, Basophils (%) (Auto ) 1.2, Sodium Level [Pending], Potassium Level [Pending], Chloride Level [ Pending], Carbon Dioxide Level [Pending], Blood Urea Nitrogen [Pending], Creatinine [Pending], Estimat Glomerular Filtration Rate [Pending], Glucose Level [Pending], Calcium Level [Pending], Magnesium Level [Pending], Total Bilirubin [Pending], Aspartate Amino Transf (AST/SGOT) [Pending], Alanine Aminotransferase (ALT/SGPT) [Pending], Alkaline Phosphatase [Pending], Pro-B- Type Natriuretic Peptide [Pending], Total Protein [Pending], Albumin [Pending], Globulin [Pending], Digoxin Level [Pending] Height (Feet): 5 Height (Inches): 6.00 Weight (Pounds): 304 General Appearance: WD/WN, alert Neck: supple Cardiovascular: irregularly irregular Respiratory/Chest: chest wall non-tender, lungs clear, normal breath sounds, no respiratory distress Abdomen: normal bowel sounds, non tender, soft, no organomegaly, no mass, other - obese Edema: no edema noted Arm (L), no edema noted Arm (R), no edema noted Leg (L), no edema noted Leg (R), no edema noted Pedal (L), no edema noted Pedal (R), no edema noted Generalized Moose Fowler MD Mar 19, 2018 08:23
[2018-03-19] MEDS: Digoxin 0.125mg tab ORAL SCH (08:40)
[2018-03-19] MEDS: Heparin 5000 units/ml inj SUBQ SCH (08:41)
[2018-03-19] MEDS: Levemir Flexpen SUBQ SCH (08:42)
[2018-03-19] MEDS ORDERED: Aspirin Baby 81mg ORAL SCH (09:00)
[2018-03-19] MEDS: Metoprolol Tartrate 50mg tab ORAL SCH ×2 (11:27→21:53)
[2018-03-19 12:00] VITALS: BP 120/62
[2018-03-19 16:00] VITALS: BP 111/66
--- NOTE | 2018-03-19 17:00 | Progress Note ---
DATE: 03/19/2018 CARDIOLOGY PROGRESS NOTE SUBJECTIVE: The patient with no shortness of breath. She remains concerned about her swelling. Glucose is better controlled. OBJECTIVE: VITAL SIGNS: Blood pressure 120/62, pulse 82, and respirations 18. LUNGS: Clear. CARDIAC: Irregularly irregular. ABDOMEN: Obese. EXTREMITIES: With edema. LABORATORY DATA: BUN and creatinine improved to 43 and 1.7. Pro-natriuretic peptide is 6000. Albumin 2.2. White count 7 and hemoglobin 13. Digoxin 1.1. IMPRESSION: 1. Atrial fibrillation, rate controlled now. 2. Acute on chronic diastolic congestive heart failure. 3. Insulin-requiring diabetes, untreated in the past. 4. Severe protein-calorie malnutrition contributing to edema. 5. Chronic kidney disease with acute component, improving. PLAN: 1. Continue current antiarrhythmics. 2. Start anticoagulation. 3. Consideration for cardioversion after full anticoagulation for 6 weeks. 4. Reassess for diuresis. 5. Add ACEi rx and monitor renal response. Martínez Barragan M.D. DR: ELIJAH JOB#: [id number] CC: [email or web address]
[2018-03-19] MEDS: Eliquis 2.5mg tablet ORAL SCH (17:05)
--- NOTE | 2018-03-19 18:18 | Pulmonology Progress Note ---
Assessment/Plan Assessment/Plan Pulmonary Progress Note Assessment/Plan IMPRESSION: 1. Rapid atrial fibrillation. 2. Abnormal thyroid stimulating hormone. 3. Possible chronic renal failure. 4. Electrolyte imbalance. 5. Questionable ascites. 6. Diabetes. RECOMMENDATIONS: 1. Supportive care reviewed 2. Sliding scale insulin- need better control 3. Cardizem drip off 4. Cardiology evaluation appreciated 5. Monitor blood sugars and we will start insulin and adjust 6. Followup renal function. 7. await echocardiogram. 8. negative venous ultrasound. 9. negative abdominal ultrasound. 10. Monitor clinically and obtain renal evaluation. 11. move to tele 12. needs PT medications/laboratory data/nursing notes/ care reviewed in detail note reviewed and edited care discussed with RN and RT Total time spent 45 minutes Subjective Allergies: Coded Allergies: No Known Allergies (Unverified , 03/15/18) Subjective care reviewed with patient d/w patient in detail off pressors Objective Last 24 Hour Vital Signs Date Time Temp Pulse Resp B/P (MAP) Pulse Ox O2 Delivery O2 Flow Rate FiO2 03/17/18 15:00 106 14 127/70 (89) 98 03/17/18 14:00 81 14 81/47 (58) 99 03/17/18 14:00 121 03/17/18 13:00 79 20 89/58 (68) 99 03/17/18 12:00 Room Air 03/17/18 12:00 98.7 124 21 112/61 (78) 97 98.7 03/17/18 12:00 122 03/17/18 11:00 120 18 123/88 (100) 99 03/17/18 10:00 119 11 99/71 (80) 99 03/17/18 09:00 120 123/88 03/17/18 09:00 115 11 96/61 (73) 99 03/17/18 08:00 98.1 106 14 98/68 (78) 100 98.1 03/17/18 08:00 Room Air 03/17/18 08:00 115 03/17/18 07:00 99 22 109/70 (83) 100 03/17/18 06:00 90 24 95/64 (74) 100 03/17/18 05:00 94 24 100/62 (75) 100 03/17/18 04:00 Room Air 03/17/18 04:00 96 03/17/18 04:00 97.8 99 17 101/59 (73) 99 97.8 03/17/18 03:00 90 21 95/60 (72) 98 03/17/18 02:00 97 24 105/75 (85) 100 03/17/18 01:00 89 16 102/62 (75) 100 03/17/18 00:30 99 25 91/58 (69) 99 03/17/18 00:00 97.6 99 25 85/58 (67) 99 97.6 03/17/18 00:00 91 03/17/18 00:00 Room Air 03/16/18 23:00 99 25 99/69 (79) 99 03/16/18 22:00 98 24 83/67 (72) 98 03/16/18 21:02 99 110/70 03/16/18 21:00 102 24 88/60 (69) 98 03/16/18 20:00 98.5 102 26 110/70 (83) 98 98.5 03/16/18 20:00 108 03/16/18 20:00 Room Air 03/16/18 19:00 99 23 98/65 (76) 97 03/16/18 18:03 98.1 03/16/18 18:00 84 23 102/70 (81) 98 03/16/18 17:08 98.1 03/16/18 17:00 96 24 107/73 (84) 97 Intake and Output 03/16/18 03/17/18 19:00 07:00 Intake Total 160 ml 280 ml Output Total 1495 ml 910 ml Balance -1335 ml -630 ml Intake Oral 145 ml 30 ml IV Total 15 ml 250 ml Output Urine Total 1495 ml 910 ml # Voids 100 # Bowel Movements 2 Laboratory Tests 03/17/18 09:00: White Blood Count 9.8, Red Blood Count 5.14, Hemoglobin 13.5, Hematocrit 43.1, Mean Corpuscular Volume 84, Mean Corpuscular Hemoglobin 26.3L, Mean Corpuscular Hemoglobin Concent 31.3L, Red Cell Distribution Width 14.3, Platelet Count 197, Mean Platelet Volume 7.4, Neutrophils (%) (Auto) 59.8, Lymphocytes (%) (Auto) 33.0, Monocytes (%) (Auto) 5.1, Eosinophils (%) (Auto) 1.0, Basophils (%) (Auto ) 1.0, Sodium Level 128L, Potassium Level 3.8, Chloride Level 98, Carbon Dioxide Level 21, Anion Gap 9, Blood Urea Nitrogen 50H, Creatinine 2.2H, Estimat Glomerular Filtration Rate 27.3, Glucose Level 195#H, Hemoglobin A1c 13.1H, Calcium Level 8.4L, Magnesium Level 2.1, Total Bilirubin 0.7, Aspartate Amino Transf (AST/SGOT) 18, Alanine Aminotransferase (ALT/SGPT) 23, Alkaline Phosphatase 130H, Troponin I 0.014, Total Protein 5.5L, Albumin 2.1L, Globulin 3.4, Albumin/Globulin Ratio 0.6L Height (Feet): 5 Height (Inches): 6.00 Weight (Pounds): 360 Objective WDWN NAD obese clear breath sounds bilaterally without rhonchi or wheeze [id number] without MRG NABS nontender no HSM no CC moderate edema nonfocal CXR: No acute findings Subjective ROS Limited/Unobtainable: No Allergies: Coded Allergies: No Known Allergies (Unverified , 03/15/18) Objective Last 24 Hour Vital Signs Date Time Temp Pulse Resp B/P (MAP) Pulse Ox O2 Delivery O2 Flow Rate FiO2 03/19/18 16:00 97.9 92 18 111/66 (81) 96 97.9 03/19/18 16:00 89 03/19/18 12:00 97.9 82 18 120/62 (81) 97 97.9 03/19/18 12:00 92 03/19/18 11:27 82 120/62 03/19/18 08:40 98 03/19/18 08:00 97.0 93 18 133/84 (100) 97 97.0 03/19/18 08:00 95 03/19/18 04:00 97.5 87 20 129/77 (94) 96 97.5 03/19/18 04:00 101 03/19/18 00:00 97.0 86 20 138/94 (109) 97 97.0 03/19/18 00:00 92 03/18/18 21:24 114 115/63 03/18/18 21:00 Room Air 03/18/18 20:00 114 03/18/18 20:00 97.3 114 18 115/63 (80) 97 97.3 Intake and Output 03/18/18 03/19/18 19:00 07:00 Intake Total 225 ml 100 ml Output Total 250 ml 800 ml Balance -25 ml -700 ml Intake Oral 225 ml 100 ml Output Urine Total 250 ml 800 ml Microbiology Date/Time Source Procedure Growth Status 03/17/18 04:00 Rectum - Final NO CARBAPENEM-RESISTANT ENTEROBACTERI... Complete Laboratory Tests 03/19/18 07:35: White Blood Count 7.1, Red Blood Count 4.87, Hemoglobin 13.5, Hematocrit 42.2, Mean Corpuscular Volume 87, Mean Corpuscular Hemoglobin 27.6, Mean Corpuscular Hemoglobin Concent 31.9L, Red Cell Distribution Width 15.1H, Platelet Count 185 , Mean Platelet Volume 7.5, Neutrophils (%) (Auto) 60.7, Lymphocytes (%) (Auto) 28.5, Monocytes (%) (Auto) 8.0, Eosinophils (%) (Auto) 1.6, Basophils (%) (Auto ) 1.2, Sodium Level 136, Potassium Level 4.3, Chloride Level 103, Carbon Dioxide Level 26, Anion Gap 8, Blood Urea Nitrogen 43H, Creatinine 1.7H, Estimat Glomerular Filtration Rate 36.7, Glucose Level 191H, Calcium Level 8.7, Magnesium Level 2.2, Total Bilirubin 0.4, Aspartate Amino Transf (AST/SGOT) 18, Alanine Aminotransferase (ALT/SGPT) 20, Alkaline Phosphatase 120H, Pro-B-Type Natriuretic Peptide 6071H, Total Protein 6.0L, Albumin 2.2L, Globulin 3.8, Albumin/Globulin Ratio 0.6L, Digoxin Level 1.1 Current Medications Medications (Trade) Dose Ordered Sig/Yu Route PRN Reason Start Time Stop Time Status Last Admin Dose Admin Acetaminophen (Tylenol) 650 mg Q4H PRN ORAL Mild Pain/Temp > 100.5 03/18/18 14:00 04/15/18 13:59 03/19/18 12:00 Alprazolam (Xanax) 0.5 mg TID PRN ORAL Anxiety 03/18/18 13:00 03/23/18 18:34 03/19/18 11:58 Apixaban (Eliquis) 5 mg BID ORAL 03/19/18 18:00 04/18/18 17:59 03/19/18 17:05 Dextrose (Dextrose 50%) 25 ml STAT PRN IV Hypoglycemia 03/18/18 10:45 04/16/18 10:44 Dextrose (Dextrose 50%) 50 ml STAT PRN IV Hypoglycemia 03/18/18 10:45 04/16/18 10:44 Digoxin (Lanoxin) 0.125 mg DAILY ORAL 03/18/18 16:00 04/17/18 15:59 03/19/18 08:40 Insulin Aspart (NovoLOG) AC+HS SUBQ 03/18/18 11:30 04/15/18 11:29 03/19/18 17:11 Insulin Detemir (Levemir) 16 units DAILY SUBQ 03/19/18 09:00 04/15/18 11:59 03/19/18 08:42 Metoprolol Tartrate (Lopressor) 50 mg Q12HR ORAL 03/18/18 21:00 04/15/18 20:59 03/19/18 11:27 Ondansetron HCl (Zofran) 4 mg Q6H PRN IVP Nausea & Vomiting 03/18/18 10:45 04/16/18 10:44 Pantoprazole (Protonix) 40 mg BIAC ORAL 03/18/18 16:30 04/15/18 16:29 03/19/18 17:05 Martínez Ruby MD Mar 19, 2018 18:18
[2018-03-19 20:00] VITALS: BP 142/85
[2018-03-20] VITALS: BP 155/76
[2018-03-20] MEDS: ALPRAZolam 0.25mg tab ORAL PRN ×2 (01:10→17:12)
[2018-03-20 04:00] VITALS: BP 154/68
[2018-03-20] MEDS: NovoLOG Insulin Flexpen SUBQ SCH ×4 (05:49→20:29)
[2018-03-20 08:00] VITALS: BP 135/79
[2018-03-20] MEDS: Digoxin 0.125mg tab ORAL SCH (08:40)
[2018-03-20] MEDS: Eliquis 2.5mg tablet ORAL SCH ×2 (08:40→17:12)
[2018-03-20] MEDS: Metoprolol Tartrate 50mg tab ORAL SCH ×2 (08:41→20:30)
[2018-03-20] MEDS: Levemir Flexpen SUBQ SCH (08:42)
[2018-03-20 12:00] VITALS: BP 140/76
--- NOTE | 2018-03-20 12:47 | General Progress Note ---
Assessment/Plan Assessment/Plan IMPRESSION: 1. Rapid atrial fibrillation. now controlled 2. Abnormal thyroid stimulating hormone. 3. Possible chronic renal failure. 4. Electrolyte imbalance. 5. no ascites. 6. Diabetes. 7. obesity RECOMMENDATIONS: 1. Supportive care reviewed 2. maintain same bs control 3. po meds noted 4. Cardiology evaluation appreciated 5. monitor for chnage 6. Followup renal function. 7. dc planning for now impression, plan, and exam edited and reviewed in detail care discussed with RN Subjective Allergies: Coded Allergies: No Known Allergies (Unverified , 03/15/18) Subjective care reviewed with patient d/w patient in detail- notes no help at home cleared by cards Objective Last 24 Hour Vital Signs Date Time Temp Pulse Resp B/P (MAP) Pulse Ox O2 Delivery O2 Flow Rate FiO2 03/20/18 12:00 98.0 92 20 140/76 (97) 96 98.0 03/20/18 08:41 81 137/78 03/20/18 08:40 81 03/20/18 08:00 92 03/20/18 08:00 97.8 89 20 135/79 (97) 99 97.8 03/20/18 04:00 98.0 85 20 154/68 (96) 99 98.0 03/20/18 04:00 91 03/20/18 00:00 94 03/20/18 00:00 98.0 86 20 155/76 (102) 98 98.0 03/19/18 21:53 95 142/85 03/19/18 21:00 Room Air 03/19/18 20:00 95 03/19/18 20:00 97.0 101 20 142/85 (104) 94 97.0 03/19/18 16:00 97.9 92 18 111/66 (81) 96 97.9 03/19/18 16:00 89 Intake and Output 03/19/18 03/20/18 19:00 07:00 Intake Total 880 ml 240 ml Output Total 600 ml 150 ml Balance 280 ml 90 ml Intake Oral 880 ml 240 ml Output Urine Total 600 ml 150 ml # Bowel Movements 1 3 Labs Test 03/18/18 07:30 03/18/18 14:45 03/19/18 07:35 Sodium Level 132 MMOL/L (136-145) 136 MMOL/L (136-145) Potassium Level 5.0 MMOL/L (3.5-5.1) 4.3 MMOL/L (3.5-5.1) Chloride Level 101 MMOL/L (98-107) 103 MMOL/L (98-107) Carbon Dioxide Level 20 MMOL/L (21-32) 26 MMOL/L (21-32) Anion Gap 11 mmol/L (5-15) 8 mmol/L (5-15) Blood Urea Nitrogen 47 mg/dL (7-18) 43 mg/dL (7-18) Creatinine 1.8 MG/DL (0.55-1.30) 1.7 MG/DL (0.55-1.30) Estimat Glomerular Filtration Rate 34.3 mL/min (>60) 36.7 mL/min (>60) Glucose Level 96 MG/DL (74-106) 191 MG/DL (74-106) Calcium Level 8.5 MG/DL (8.5-10.1) 8.7 MG/DL (8.5-10.1) White Blood Count 8.8 K/UL (4.8-10.8) 7.1 K/UL (4.8-10.8) Red Blood Count 5.01 M/UL (4.20-5.40) 4.87 M/UL (4.20-5.40) Hemoglobin 13.4 G/DL (12.0-16.0) 13.5 G/DL (12.0-16.0) Hematocrit 42.9 % (37.0-47.0) 42.2 % (37.0-47.0) Mean Corpuscular Volume 86 FL (80-99) 87 FL (80-99) Mean Corpuscular Hemoglobin 26.7 PG (27.0-31.0) 27.6 PG (27.0-31.0) Mean Corpuscular Hemoglobin Concent 31.2 G/DL (32.0-36.0) 31.9 G/DL (32.0-36.0) Red Cell Distribution Width 15.1 % (11.6-14.8) 15.1 % (11.6-14.8) Platelet Count 208 K/UL (150-450) 185 K/UL (150-450) Mean Platelet Volume 7.0 FL (6.5-10.1) 7.5 FL (6.5-10.1) Neutrophils (%) (Auto) 74.5 % (45.0-75.0) 60.7 % (45.0-75.0) Lymphocytes (%) (Auto) 17.4 % (20.0-45.0) 28.5 % (20.0-45.0) Monocytes (%) (Auto) 5.9 % (1.0-10.0) 8.0 % (1.0-10.0) Eosinophils (%) (Auto) 0.9 % (0.0-3.0) 1.6 % (0.0-3.0) Basophils (%) (Auto) 1.4 % (0.0-2.0) 1.2 % (0.0-2.0) Magnesium Level 2.2 MG/DL (1.8-2.4) Total Bilirubin 0.4 MG/DL (0.2-1.0) Aspartate Amino Transf (AST/SGOT) 18 U/L (15-37) Alanine Aminotransferase (ALT/SGPT) 20 U/L (12-78) Alkaline Phosphatase 120 U/L (46-116) Pro-B-Type Natriuretic Peptide 6071 pg/mL (0-125) Total Protein 6.0 G/DL (6.4-8.2) Albumin 2.2 G/DL (3.4-5.0) Globulin 3.8 g/dL Albumin/Globulin Ratio 0.6 (1.0-2.7) Digoxin Level 1.1 NG/ML (0.9-2.0) Height (Feet): 5 Height (Inches): 6.00 Weight (Pounds): 355 Objective WDWN NAD obese clear breath sounds bilaterally without rhonchi or wheeze S1S2 iRRR without MRG NABS nontender no HSM no CC moderate chronic edema nonfocal Tra Massey MD Mar 20, 2018 12:47
[2018-03-20 16:00] VITALS: BP 145/82
[2018-03-20] MEDS ORDERED: Simethicone 80mg tab ORAL PRN (19:45)
[2018-03-20 20:30] VITALS: BP 124/65
--- NOTE | 2018-03-20 22:45 | Progress Note ---
DATE: 03/20/2018 CARDIOLOGY PROGRESS NOTE SUBJECTIVE: The patient has no chest pain or shortness of breath. Monitored rhythm, atrial fibrillation, now rate controlled. OBJECTIVE: VITAL SIGNS: Vitals 140/76, heart rate 81 to 92, respiratory rate 20, and afebrile. LUNGS: With diminished breath sounds. No wheezing or rales. CARDIAC: Irregularly irregular. Normal S1, S2 with a 1/6 systolic murmur at the apex. ABDOMEN: Soft and nontender. EXTREMITIES: With 1+ dependent edema. DIAGNOSTIC DATA: Final study reveals some degree of mitral stenosis and minimal aortic stenosis with possibility of rheumatic disease although more likely degenerative. IMPRESSION: 1. Atrial fibrillation now rate controlled. 2. Acute on chronic diastolic congestive heart failure, now compensated. 3. Valvular heart disease, presently not requiring any surgical intervention. 4. Diabetes mellitus, untreated. 5. Edema most likely due to proteinuria in this setting. PLAN: 1. Full anticoagulation. 2. Titrate anti-failure regimen as well as medications for rate control. 3. May require some diuretic therapy. 4. Optimize glucose control. Martínez Barragan M.D. DR: ELIJAH JOB#: [id number] CC:
[2018-03-21] VITALS: BP 148/89
[2018-03-21] MEDS: ALPRAZolam 0.25mg tab ORAL PRN (00:32)
[2018-03-21 04:00] VITALS: BP 155/88
[2018-03-21] MEDS: NovoLOG Insulin Flexpen SUBQ SCH ×2 (07:12→11:50)
[2018-03-21 08:00] VITALS: BP 143/78
[2018-03-21 08:05] LABS: BASOPHILS % (AUTO) 1.4 % (0.0-2.0); EOSINOPHILS % (AUTO) 1.8 % (0.0-3.0); HEMATOCRIT 41.3 % (37.0-47.0); HEMOGLOBIN 12.6 G/DL (12.0-16.0); LYMPHOCYTES % (AUTO) 34.9 % (20.0-45.0); MEAN CORPUSCULAR VOLUME 87 FL (80-99); MONOCYTES % (AUTO) 8.5 % (1.0-10.0); NEUTROPHILS % (AUTO) 53.5 % (45.0-75.0); PLATELET COUNT 175 K/UL (150-450); RED BLOOD COUNT 4.74 M/UL (4.20-5.40); RED CELL DISTRIBUTION WIDTH 15.3 % (11.6-14.8); WHITE BLOOD COUNT 5.9 K/UL (4.8-10.8)
--- NOTE | 2018-03-21 08:10 | General Progress Note ---
Assessment/Plan Assessment/Plan IMPRESSION: 1. Rapid atrial fibrillation. now controlled 2. Abnormal thyroid stimulating hormone. 3. Possible chronic renal failure. 4. Electrolyte imbalance. 5. no ascites. 6. Diabetes. 7. obesity RECOMMENDATIONS: 1. dc home with RX 2. monitor bs at home 3. po meds noted 4. Cardiology noted 5. monitor after dc 6. Followup renal function. 7. stable for dc impression, plan, and exam edited and reviewed in detail care discussed with RN Subjective Allergies: Coded Allergies: No Known Allergies (Unverified , 03/15/18) Subjective care reviewed with patient dc today RX given home health arranged Objective Last 24 Hour Vital Signs Date Time Temp Pulse Resp B/P (MAP) Pulse Ox O2 Delivery O2 Flow Rate FiO2 03/21/18 04:00 98.0 83 20 155/88 (110) 99 98.0 03/21/18 00:00 81 03/21/18 00:00 98.4 89 20 148/89 (108) 99 98.4 03/20/18 21:00 Room Air 03/20/18 20:30 93 124/65 03/20/18 20:30 98.9 94 20 124/65 (84) 97 98.9 03/20/18 20:00 122 03/20/18 16:00 97 03/20/18 16:00 98.2 82 20 145/82 (103) 98 98.2 03/20/18 12:00 78 03/20/18 12:00 98.0 92 20 140/76 (97) 96 98.0 03/20/18 08:41 81 137/78 03/20/18 08:40 81 Intake and Output 03/20/18 03/21/18 19:00 07:00 Intake Total 480 ml Output Total 300 ml Balance 180 ml Intake Oral 480 ml Output Urine Total 300 ml # Bowel Movements 3 4 Laboratory Tests 03/21/18 07:05: White Blood Count [Pending], Red Blood Count [Pending], Hemoglobin [Pending], Hematocrit [Pending], Mean Corpuscular Volume [Pending], Mean Corpuscular Hemoglobin [Pending], Mean Corpuscular Hemoglobin Concent [Pending], Red Cell Distribution Width [Pending], Platelet Count [Pending], Mean Platelet Volume [ Pending], Neutrophils (%) (Auto) [Pending], Lymphocytes (%) (Auto) [Pending], Monocytes (%) (Auto) [Pending], Eosinophils (%) (Auto) [Pending], Basophils (%) (Auto) [Pending], Sodium Level [Pending], Potassium Level [Pending], Chloride Level [Pending], Carbon Dioxide Level [Pending], Blood Urea Nitrogen [Pending], Creatinine [Pending], Estimat Glomerular Filtration Rate [Pending], Glucose Level [Pending], Calcium Level [Pending], Total Bilirubin [Pending], Aspartate Amino Transf (AST/SGOT) [Pending], Alanine Aminotransferase (ALT/SGPT) [Pending] , Alkaline Phosphatase [Pending], Pro-B-Type Natriuretic Peptide [Pending], Total Protein [Pending], Albumin [Pending], Globulin [Pending] Height (Feet): 5 Height (Inches): 6.00 Weight (Pounds): 355 Objective WDWN NAD obese clear breath sounds bilaterally without rhonchi or wheeze S1S2 iRRR without MRG NABS nontender no HSM no CC moderate chronic edema nonfocal Tra Massey MD Mar 21, 2018 08:10
[2018-03-21] MEDS: Metoprolol Tartrate 50mg tab ORAL SCH (08:21)
[2018-03-21] MEDS: Eliquis 2.5mg tablet ORAL SCH (08:22)
[2018-03-21] MEDS: Digoxin 0.125mg tab ORAL SCH (08:22)
[2018-03-21] MEDS: Levemir Flexpen SUBQ SCH (08:29)
[2018-03-21 08:39] LABS: ALANINE AMINOTRANSFERASE 18 U/L (12-78); ALBUMIN 2.1 G/DL (3.4-5.0); ALBUMIN/GLOBULIN RATIO 0.6 (1.0-2.7); ALKALINE PHOSPHATASE 110 U/L (46-116); ANION GAP 8 mmol/L (5-15); ASPARTATE AMINO TRANSFERASE 22 U/L (15-37); BILIRUBIN,TOTAL 0.4 MG/DL (0.2-1.0); BLOOD UREA NITROGEN 33 mg/dL (7-18); CALCIUM 8.5 MG/DL (8.5-10.1); CARBON DIOXIDE 25 MMOL/L (21-32); CHLORIDE 106 MMOL/L (98-107); CREATININE 1.2 MG/DL (0.55-1.30); POTASSIUM 4.6 MMOL/L (3.5-5.1); SODIUM 139 MMOL/L (136-145)
[2018-03-21 12:00] VITALS: BP 137/69
--- NOTE | 2018-03-21 13:53 | Cardiology Report ---
APPROVED REPORT EXAM: Two-dimensional and M-mode echocardiogram with Doppler and color Doppler. INDICATION A-FIB M-Mode DIMENSIONS IVSd2.2 (0.7-1.1cm)Left Atrium (MM)4.8 (1.6-4.0cm) LVDd2.5 (3.5-5.6cm)Aortic Root3.1 (2.0-3.7cm) PWd2.8 (0.7-1.1cm)Aortic Cusp Exc.1.3 (1.5-2.0cm) IVSs1.3 cm LVDs2.0 (2.5-4.0cm) PWs2.6 cm Technically difficult study due to patient body habitus. Study quality precludes accurate assessment of regional wall motion. Normal left ventricular chamber size, systolic function and wall motion to extent visualized. Left ventricular ejection fraction estimated to be 60 %. Moderate left ventricular hypertrophy. No evidence of pericardial effusion. Mild bi-atrial enlargement. Right ventricular chamber size is within normal limits. Mild focal aortic valve sclerosis with adequate cusp excursion. Heavily thickened mitral valve leaflets with reduced excursion. Heavy mitral annulus and aortic root calcification. Pulmonic valve not well visualized. Normal tricuspid valve structure. Subcostal views not obtainable. A color flow and spectral Doppler study was performed and revealed: Moderate aortic insufficiency. Peak aortic valve gradient of 32 mmHg and a mean of 14 mmHg. Aortic valve area 1.0 cm2 calculated by continuity equation. Mild mitral regurgitation. Mitral P1/2 time of 19 m/s is compatible with a mitral valve area of 1.2 cm2 Peak mitral valve diastolic gradient of 12 mmHg and a mean gradient of 4 mmHg. Mitral valve pressure gradient may be underestimated due to A-Fib. Left ventricular diastolic function could not be determined due to A-Fib. Mild to moderate tricuspid regurgitation. Tricuspid systolic velocities suggests peak right ventricular systolic pressure of 42 mmHg, consistent with mild pulmonary hypertension. Mild pulmonic regurgitation present.
--- NOTE | 2018-03-22 06:32 | Progress Note ---
DATE: 03/21/2018 CARDIOLOGY PROGRESS NOTE SUBJECTIVE: The patient's heart rate remains well controlled in atrial fibrillation. She is on anticoagulation with Eliquis and has not had any bleeding complications. OBJECTIVE: VITAL SIGNS: Her blood pressure range is still is improved, but still on the higher normal range up to 155/88 prior to discharge, earlier 124/65, heart rate 94, and respiratory rate 20. LUNGS: Clear. CARDIAC: Irregularly irregular. ABDOMEN: Soft. EXTREMITIES: With dependent 1+ edema. LABORATORY DATA: White count 5.9 and hemoglobin 12. Potassium 4.6, BUN 33, creatinine 1.2. Pro-natriuretic peptide is 6700. Albumin . IMPRESSION: 1. Atrial fibrillation, chronic and rate controlled. 2. 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 3. Chronic kidney disease. 4. Type 2 diabetes mellitus, untreated up until now. 5. Chronic venous insufficiency with dependent edema. 6. Proteinuria with hypoalbuminemia. PLAN: 1. Continue Eliquis. 2. Maintain current cardiovascular regimen. 3. Optimize glucose control as an outpatient. 4. Monitor cardiorenal parameters. 5. No role for diuretics presently. 6. Followup Cardiology as an outpatient. Mario Mcdaniels JOB#: [id number] CC:
--- NOTE | 2018-03-23 12:13 | Discharge Summary ---
Discharge Summary Discharge Summary _ DATE OF ADMISSION: 03/15/2018 DATE OF DISCHARGE: 03/21/18 REASON FOR ADMISSION: 62 years old female presented with complaint of abdominal swelling. Patient stated she had not seen physicians over 10 years. Ten years ago she was seen by physician, who told her that she would live only n until 63. Patient became depressed, gained significant weight and never seen physicians since that time. Upon presentation to emergency department, patient denied chest pain , but reported palpitations. Patient also reported edema bilateral lower extremity. Patient denied nausea and vomiting. Upon evaluation vital signs revealed tachycardia with heart rate of 145, blood pressure 140/70, respiratory rate 22 ,no fever. Laboratory workup revealed no leukocytosis, stable hemoglobin and hematocrit. Sodium 126. Lactic acid 2.8. Troponin negative. Pro BNP 3505. Glucose 678 with normal anion gap and bicarbonate. BUN 43 , creatinine 2.2. EKG revealed atrial fibrillation with rapid ventricular response . Chest x-ray revealed cardiomegaly and pulmonary congestion. Patient admitted with diagnoses of atrial fibrillation with rapid ventricular response, hyperglycemia, electrolyte abnormalities with acute hyponatremia, acute renal failure versus chronic renal failure. CONSULTANTS: nurse licensed practical [facility]SE: Patient admitted to telemetry floor. Patient initially started on Cardizem drip for rate control. Cardiology evaluation was requested. Heart rate stabilized. Cardizem drip was discontinued, and patient was started on beta yusuf. Heart rate remained stable. Initially patient was on antiplatelet therapy. Renal parameters and electrolytes were closely monitored. Electrolytes corrected as needed and nephrotoxins were avoided. Acute renal failure resolved . Sodium up to normal. Patient started on Eliquis for thromboembolic prophylaxis per cardiologic recommendations. Echocardiogram revealed preserved ejection fraction of 60%, moderate left ventricular hypertrophy. Mild aortic and mitral stenosis. Right ventricular systolic pressure of 42 consistent with mild pulmonary hypertension Anti-failure medication regimen provided with beta yusuf and digoxin. Digoxin level was stable. GI prophylaxis provided. Lipid panel stable. Venous duplex bilateral lower extremity was negative. Tooling Engineer closely followed . Heart rate was controlled, anticoagulation was continued. Blood pressure stabilized. One dose of Furosemide given in ED. No need for further diuretics at this time. Volumes and cardiorenal parameters were closely monitored. According to nurse licensed practical, patient had chronic venous insufficiency with dependent edema. TSH with minimal elevation, recheck TSH in 3-4 weeks. Blood sugar initially was not controlled . Hemoglobin A1c -13.1, not at goal. Patient started on glycemic regimen with long-acting Levemir and sliding scale of insulin as needed. Blood sugar improved Patient needs further optimization of anti-glycemic regimen as outpatient. Urine culture was negative. LFT were stable. Nutritional supplement with protein provided as per nurse licensed practical recommendations who concluded that patient was at moderate risk for malnutrition. Supportive care provided. Bowel regimen instituted. Pain management was addressed as needed Patient clinically improved and was stable for discharge home with close follow up with primary care provider as outpatient. FINAL DIAGNOSES: Atrial fibrillation with rapid ventricular response Hyperglycemia secondary to diabetes type 2 Diabetes mellitus out of control Electrolyte imbalances (acute hyponatremia) ,- resolved Acute renal failure -resolved Acute on chronic diastolic congestive heart failure Degenerative and possible rheumatic valvular disorder Mild mitral and aortic stenosis Chronic venous insufficiency with dependent edema Severe protein calorie malnutrition Proteinuria, possibly diabetic nephropathy DISCHARGE MEDICATIONS: See Medication Reconciliation list. DISCHARGE INSTRUCTIONS: Patient was discharged home with home health services. Patient encouraged to see primary care provider in one week. Patient needs close monitoring and management of chronic disease such as diabetes hypertension and atrial fibrillation. Patient was counseled on ED return precautions and bleeding precautions. Patient was encouraged to comply with medication regimen. I have been assigned to dictate discharge summary for this account. I was not involved in the patient's management. Leigh Zaragoza NP Mar 23, 2018 12:13
== END 2018-03-21 13:50 | disposition home health service (06) | DRG 308 ==
LOC: EDBEDREQ 23:15 → EMR 23:16 → ICU 23:54 → EDBD 23:54 → EDBEDREQDT 03-16 01:18 → EDBEDREQTM 03-16 01:18 → EDBEDREQSVC 03-16 01:18 → EDBEDREQ 03-16 05:52 → 2W 03-17 18:15 → 2E 03-18 10:25
DX: I48.91 Unspecified atrial fibrillation (principal); E43 Unspecified severe protein-calorie malnutrition; I50.33 Acute on chronic diastolic (congestive) heart failure; N17.9 Acute kidney failure, unspecified; E87.1 Hypo-osmolality and hyponatremia; F41.9 Anxiety disorder, unspecified; F32.9 Major depressive disorder, single episode, unspecified; E87.8 Other disorders of electrolyte and fluid balance, not elsewhere classified; I95.9 Hypotension, unspecified; E11.22 Type 2 diabetes mellitus with diabetic chronic kidney disease; N18.9 Chronic kidney disease, unspecified; E11.65 Type 2 diabetes mellitus with hyperglycemia; R94.6 Abnormal results of thyroid function studies; R60.9 Edema, unspecified; I08.0 Rheumatic disorders of both mitral and aortic valves
CPT/HCPCS: 36415; 71045; 76700; 80048; 80053; 80061; 80162; 81003; 82550; 82553; 82962; 83036; 83605; 83690; 83735; 83880; 84443; 84484; 85025; 85730; 87040; 87081; 87086; 93005; 93306; 93970; J1815; S5561